=== PATIENT | male | born 1970 | race Caucasian/White ===

== ENCOUNTER 2018-09-18 01:58 | Emergency (ER) | payer MEDICAID, OTHER ==
[~2018-09-18] VITALS: Ht 162.6 cm; Wt 72.3 kg
[~2018-09-18 01:58] MED LIST: IBUP-1542 PO; MUPI22OI2 TOP
[2018-09-18 02:01] VITALS: BP 155/88; PULSE 68; RESP 18; Ht 162.6 cm; Wt 72.3 kg
[2018-09-18] MEDS ORDERED: DIPHTH/TET/ACEL PERTUSS (ADULT) 0.5 ML VIAL IM* ONE (02:30)
--- NOTE | 2018-09-18 02:31 | ERD ---
ER Documentation Chief Complaint Chief Complaint BUG BITE, LEFT LEG X1DAY HPI Patient is a 47-year-old male, no past medical history, presents the ER for concerns of a insect bite on his left leg x2 days. Patient states he was outside yesterday at a wedding when he felt some biting his left lower leg. Patient states this night he was unable to sleep because of having bilateral leg pain. Patient is able to ambulate without any difficulty. Patient has no rashes. Patient has no neck pain or neck stiffness. Patient has no fevers or chills. Patient has no nausea, vomiting, abdominal pain or diarrhea. Patient has no chest pain or shortness of breath. Patient does not recall his last tetanus vaccination. ROS All systems reviewed and are negative except as per history of present illness. Medications Home Meds Active Scripts Mupirocin* (Bactroban*) 2% -22 Gram Oint...g., 1 APPLIC TOP BID for 7 Days, EA Prov:DWIGHT MORALES PA-C 09/18/18 Ibuprofen* (Motrin*) 600 Mg Tab, 600 MG PO Q6, #30 TAB Prov:DWIGHT MORALES PA-C 09/18/18 PMhx/Soc Medical and Surgical Hx: pt denies Medical Hx, pt denies Surgical Hx Hx Alcohol Use: No Hx Substance Use: No Hx Tobacco Use: No Smoking Status: Never smoker FmHx Family History: No diabetes Physical Exam Vitals Vital Signs Date Temp Pulse Resp B/P (MAP) Pulse Ox O2 O2 Flow FiO2 Time Delivery Rate 09/18/18 98.2 68 18 155/88 99 02:01 (110) Physical Exam GENERAL: Well-developed, well-nourished male. Appears in no acute distress. HEAD: Normocephalic, atraumatic. EYES: Pupils are equally reactive bilaterally. EOMs grossly intact. No conjunctival erythema. ENT: Moist mucous membranes. No uvula deviation. No kissing tonsils. NECK: Supple. No meningismus. Normal range of motion of the neck. LUNG: Clear to auscultation bilaterally. No rhonchi, wheezing, rales or coarse breath sounds. HEART: Regular rate and rhythm. No murmurs, rubs or gallops.. EXTREMITIES: Equal pulses bilaterally. No peripheral clubbing, cyanosis or edema. No unilateral leg swelling. NEUROLOGIC: Alert and oriented. Moving all four extremities without any difficulty. Normal speech. Steady gait. SKIN: Faint 2 centimeter erythematous circular lesion noted to the patient's left lower lateral leg. No surrounding swelling or warmth. No streaking. No fluctuance or induration. Negative Nikolsky sign. Procedures/MDM MEDICAL DECISION MAKING: This is a 47-year-old male who presents ER for concerns of insect bite to his left lower leg x2 days. Patient also reports bilateral leg pain. Patient did not have any systemic findings. Patient's mental status was within normal limits. Vital signs were within normal limits. Patient is not diabetic. On exam, faint circular erythematous lesion noted on the patient's lower leg. No surrounding swelling, warmth or streaking. Patient had no rashes throughout his body. Patient was given tetanus vaccination. Symptoms appear to be related to insect bite of unknown etiology. Low suspicion for necrotizing fasciitis, sepsis, gangrene, Christopher-Daljit syndrome, toxic epidural necrolysis, abscess, cellulitis, herpes zoster, viral exanthem, anaphylaxis, allergic reaction, meningococcemia. PRESCRIPTIONS: Mupirocin, ibuprofen DISCHARGE: At this time, patient is stable for discharge and outpatient management. I have advised the patient to avoid any new products, creams or possible allergens. I have advised the patient to avoid scratching the lesions. I have instructed the patient to follow-up with his/her primary care physician in 1-2 days. If symptoms persist, patient may need to see a critical systems technician for further examinations and testing. I have instructed the patient to promptly return to the ER at any time for any new or worsening symptoms including increased pain, fever, redness, swelling, warmth, difficulty breathing or vomiting. The patient and/or family expressed understanding of and agreement with this plan. All questions were answered. Home care instructions were provided. Disclaimer: Inadvertent spelling and grammatical errors are likely due to EHR/dictation software use and do not reflect on the overall quality of patient care. Also, please note that the electronic time recorded on this note does not necessarily reflect the actual time of the patient encounter. Departure Diagnosis: Primary Impression: Insect bite Encounter type: initial encounter Site of insect bite: unspecified site Qualified Codes: W57.XXXA - Bitten or stung by nonvenomous insect and other nonvenomous arthropods, initial encounter Additional Impression: Generalized body aches Condition: Fair Patient Instructions: Insect Bite Referrals: [facility] YOU HAVE RECEIVED A MEDICAL SCREENING EXAM AND THE RESULTS INDICATE THAT YOU DO NOT HAVE A CONDITION THAT REQUIRES URGENT TREATMENT IN THE EMERGENCY DEPARTMENT. FURTHER EVALUATION AND TREATMENT OF YOUR CONDITION CAN WAIT UNTIL YOU ARE SEEN IN YOUR DOCTORS OFFICE WITHIN THE NEXT 1-2 DAYS. IT IS YOUR RESPONSIBILITY TO MAKE AN APPOINTMENT FOR FOLOW-UP CARE. IF YOU HAVE A PRIMARY DOCTOR --you should call your primary doctor and schedule an appointment IF YOU DO NOT HAVE A PRIMARY DOCTOR YOU CAN CALL OUR PHYSICIAN REFERRAL HOTLINE AT IF YOU CAN NOT AFFORD TO SEE A PHYSICIAN YOU CAN CHOSE FROM THE FOLLOWING [facility] [address] [facility]. [facility] [address] [facility] [facility] [address] [facility] [facility] [address] [facility] [facility] [address] [facility]. [facility] [address] [facility]. [facility] YOU HAVE RECEIVED A MEDICAL SCREENING EXAM AND THE RESULTS INDICATE THAT YOU DO NOT HAVE A CONDITION THAT REQUIRES URGENT TREATMENT IN THE EMERGENCY DEPARTMENT. FURTHER EVALUATION AND TREATMENT OF YOUR CONDITION CAN WAIT UNTIL YOU ARE SEEN IN YOUR DOCTORS OFFICE WITHIN THE NEXT 1-2 DAYS. IT IS YOUR RESPONSIBILITY TO MAKE AN APPOINTMENT FOR FOLOW-UP CARE. IF YOU HAVE A PRIMARY DOCTOR --you should call your primary doctor and schedule and appointment IF YOU DO NOT HAVE A PRIMARY DOCTOR YOU CAN CALL OUR PHYSICIAN REFERRAL HOTLINE AT . IF YOU CAN NOT AFFORD TO SEE A PHYSICIAN YOU CAN CHOSE FROM THE FOLLOWING [facility] INSTITUTIONS: [facility] [address] [place] [address] [facility] [address] [place] [address] [facility] + [facility] [address] [place] [address] Additional Instructions: Llame al doctor MERVAT y linda dawna MYKE PARA DENTRO DE 1-2 [place].Dgale a la secretaria que nosotros le instruimos hacer esta myke.Avise o llame si vences condicin se empeora antes de la myke. Regresa aqui si peor o no mejor. DWIGHT MORALES PA-C Sep 18, 2018 02:31
== END 2018-09-18 02:45 | disposition home or self-care (01) ==
LOC: FTE 01:58
DX: S80.862A Insect bite (nonvenomous), left lower leg, initial encounter (principal); M79.604 Pain in right leg; M79.605 Pain in left leg; W57.XXXA Bitten or stung by nonvenomous insect and other nonvenomous arthropods, initial encounter; Y92.89 Other specified places as the place of occurrence of the external cause; Z23 Encounter for immunization
CPT/HCPCS: 90471; 90715; Z7502